=== PATIENT | female | born 1995 | race Caucasian/White ===

== ENCOUNTER 2019-02-08 22:48 | Emergency (ER) | payer BC, OTHER ==
[2019-02-08 23:19] VITALS: RESP 18; TEMP 98.1; O2SAT 100
--- NOTE | 2019-02-09 00:47 | ED PDOC ---
Arrival/HPI - General Historian: Patient - History of Present Illness Narrative History of Present Illness (Text): 02/09/19 00:40 23yo female who present with complaint of neck pain x one day s/p trauma. Notes that she slipped and fall down unknown number of stairs yesterday and injured her neck. States pain is constant and crampy. Her pain improved this evening s/p taking Motrin and applying Epsom salt. She denies focal weakness, LOC, headache, dizziness, any other complaint. <Keysha Medrano A - Last Filed: 02/09/19 00:48> <Juan Jose Amato - Last Filed: 02/09/19 01:01> - General Chief Complaint: Trauma Time Seen by Provider: 02/08/19 23:00 Past Medical History - Provider Review Nursing Documentation Reviewed: Yes - Psychiatric Hx Substance Use: No - Surgical History Hx Tonsillectomy: Yes - Anesthesia Hx Anesthesia: Yes Hx Anesthesia Reactions: No - Suicidal Assessment Feels Threatened In Home Enviroment: No <Keysha Medrano A - Last Filed: 02/09/19 00:48> Family/Social History - Physician Review Nursing Documentation Reviewed: Yes Family/Social History: Unknown Family HX Smoking Status: Current Some Days Smoker Hx Alcohol Use: Yes Frequency of alcohol use: Socially Hx Substance Use: No <Keysha Medrano A - Last Filed: 02/09/19 00:48> Allergies/Home Meds <Keysha Medrano A - Last Filed: 02/09/19 00:48> <Juan Jose Amato - Last Filed: 02/09/19 01:01> Allergies/Adverse Reactions: Allergies amoxicillin Allergy (Intermediate, Verified 02/08/19 23:16) RASH amoxicillin trihydrate [From Augmentin] Allergy (Mild, Verified 02/08/19 23:16) RASH potassium clavulanate [From Augmentin] Allergy (Mild, Verified 02/08/19 23:16) RASH Review of Systems - Physician Review All systems were reviewed & negative as marked: Yes - Review of Systems Constitutional: Normal Eyes: Normal ENT: Normal Respiratory: Normal Cardiovascular: Normal Gastrointestinal: Normal Genitourinary Female: Normal Musculoskeletal: Neck Pain Skin: Normal Neurological: Normal Endocrine: Normal Hemo/Lymphatic: Normal Psychiatric: Normal <Keysha Medrano A - Last Filed: 02/09/19 00:48> Physical Exam Vital Signs Reviewed: Yes Vital Signs Temp Pulse Resp BP Pulse Ox 02/08/19 23:16 98.1 F 73 18 116/74 100 Temperature: Afebrile Blood Pressure: Normal Pulse: Regular Respiratory Rate: Normal Appearance: Positive for: Well-Appearing, Non-Toxic, Comfortable Pain Distress: None Mental Status: Positive for: Alert and Oriented X 3 - Systems Exam Head: Present: Atraumatic, Normocephalic Pupils: Present: PERRL Extroacular Muscles: Present: EOMI Conjunctiva: Present: Normal Mouth: Present: Moist Mucous Membranes Neck: Present: Normal Range of Motion (With pain on flexion), MIDLINE TENDERNESS. No: Paraspinal Tenderness Respiratory/Chest: Present: Clear to Auscultation, Good Air Exchange. No: Respiratory Distress, Accessory Muscle Use Cardiovascular: Present: Regular Rate and Rhythm, Normal S1, S2. No: Murmurs Abdomen: No: Tenderness, Distention, Peritoneal Signs Back: Present: Normal Inspection Upper Extremity: Present: Normal Inspection. No: Cyanosis, Edema Lower Extremity: Present: Normal Inspection. No: Edema Neurological: Present: GCS=15, CN II-XII Intact, Speech Normal Skin: Present: Warm, Dry, Normal Color. No: Rashes Psychiatric: Present: Alert, Oriented x 3, Normal Insight, Normal Concentration <Diru,Happiness A - Last Filed: 02/09/19 00:48> Vital Signs Temp Pulse Resp BP Pulse Ox 02/08/19 23:16 98.1 F 73 18 116/74 100 <Juan Jose Amato - Last Filed: 02/09/19 01:01> Medical Decision Making ED Course and Treatment: 02/09/19 00:50 PT presented for stated history. She was neurologically intact and comfortable in ED. CS xray - No acute finding Result was DW the pt She was given Ibuprofen/flexeril for MS pain Advised to apply warm compress to area and f/u with her PMD - RAD Interpretation Radiology Orders: 02/08/19 23:58 CERVICAL SPINE >18YR W/OBLIQUE [RAD] Stat <Diru,Happiness A - Last Filed: 02/09/19 00:48> - RAD Interpretation Radiology Orders: 02/08/19 23:58 CERVICAL SPINE >18YR W/OBLIQUE [RAD] Stat - Medication Orders Current Medication Orders: Discontinued Medications Ketorolac Tromethamine (Toradol) 30 mg IM STAT STA Stop: 02/09/19 00:41 <Juan Jose Amato - Last Filed: 02/09/19 01:01> - PA / CONSTRUCTION TECHNICIAN / Resident Statement / has reviewed & agrees with the documentation as recorded. <Juan Jose Amato - Last Filed: 02/09/19 01:01> Disposition/Present on Arrival - Present on Arrival Any Indicators Present on Arrival: No History of DVT/PE: No History of Uncontrolled Diabetes: No Urinary Catheter: No History of Decub. Ulcer: No History Surgical Site Infection Following: None - Disposition Have Diagnosis and Disposition been Completed?: Yes Disposition Time: 00:50 Patient Plan: Discharge <Keysha Medrano - Last Filed: 02/09/19 00:48> <Juan Jose Amato - Last Filed: 02/09/19 01:01> - Disposition Diagnosis: Neck muscle strain Disposition: HOME/ ROUTINE Condition: STABLE Discharge Instructions (ExitCare): Cervical Muscle Strain Additional Instructions: Apply warm compress/shower Take medication as directed Follow up with your doctor Return to ED for any new or worsening symptoms Prescriptions: Cyclobenzaprine [Cyclobenzaprine HCl] 10 mg PO TID #10 tab Ibuprofen [Motrin Tab] 600 mg PO Q6 #20 tab Referrals: [facility] [place] [facility] [place] - Follow up with primary Forms: [employer] (Bulgarian)
[2019-02-09 03:29] VITALS: BP 120/72; PULSE 72
--- NOTE | 2019-02-09 11:47 | RAD ---
Date of service: 02/09/2019 PROCEDURE: Cervical Spine Radiographs. HISTORY: Pain. COMPARISON: None available. TECHNIQUE: 3 views obtained. FINDINGS: BONES: Straightening of the normal lordosis. No fracture. Dens Intact. DISC SPACES: Normal. SOFT TISSUES: Normal. No prevertebral soft tissue swelling. OTHER FINDINGS: None. IMPRESSION: Straightening of the normal cervical lordosis may be related to positioning/spasm. No acute fracture.
== END 2019-02-09 01:45 | disposition home or self-care (01) ==
LOC: ED 22:48
DX: S16.1XXA Strain of muscle, fascia and tendon at neck level, initial encounter (principal); W10.9XXA Fall (on) (from) unspecified stairs and steps, initial encounter
CPT/HCPCS: 72050; 81025; 96372; 99284; J1885